=== PATIENT | female | born 1965 | race Caucasian/White ===

== ENCOUNTER → 2017-10-09 | Outpatient (CLI) | payer BC ==
[~2017-10-09] MED LIST: DCS100C PO; FERR-47 PO; FEXO1TAB42 PO; HYDR-34 PO; IBP600T1 PO
--- NOTE | 2017-10-09 10:19 | Diagnostic Imaging Report ---
INDICATION: Routine screening. COMPARISON: 01/29/2015 and 01/20/2014. TECHNIQUE: 2D and 3D bilateral screening mammography was performed with CAD. FINDINGS: Scattered fibroglandular densities are identified bilaterally. A biopsy clip in the upper-outer right breast is again noted. There is a cluster of microcalcifications in the outer right breast which appears stable. No dominant mass or malignant appearing microcalcifications are seen. The axillae are unremarkable. IMPRESSION: No mammographic features suspicious for malignancy are identified. ACR BI-RADS Category 2: Benign findings. Result letter will be mailed to the patient. Note: At least 10% of breast cancer is not imaged by mammography. Dictated by: Dictated on workstation # [id number]
== END ==
LOC: RAD 07:36
PROVIDERS: ATTEND Obstetrics & Gynecology
DX: Z12.31 Encounter for screening mammogram for malignant neoplasm of breast (principal)
CPT/HCPCS: 77067

== ENCOUNTER → 2019-01-22 | Outpatient (CLI) | payer BC ==
--- NOTE | 2019-01-24 19:16 | Diagnostic Imaging Report ---
EXAMINATION: Digital mammogram bilateral screening. INDICATION: Screening. COMPARISON: This study was compared to the prior exams of 10/09/2017, 01/29/2015, and 01/20/2014. At this time, there are no current complaints. The current study was also evaluated with a Computer Aided Detection (CAD) system. 3-D tomosynthesis was also performed and reviewed. FINDINGS: There are scattered fibroglandular densities in both breasts which could obscure a lesion. In the upper-outer aspect of the right breast at mid posterior depth, there are a few faint calcifications. These calcifications were present on the prior exam, but they do seem more conspicuous on this study. I am not convinced that they have changed, however. Even so, I would recommend that a compression/magnification view of this area be obtained in the CC and ML projections so that they can be better characterized. The overall appearance of the breasts has not changed significantly otherwise. The stereotactic clip in the upper-outer aspect of the right breast seen previously is again evident. There is no primary or secondary sign of malignancy noted. IMPRESSION: Additional mammographic views of the right breast would be recommended for further study. ACR BI-RADS Category 0: Incomplete. (Needs additional imaging evaluation). Result letter will be mailed to the patient. Note: At least 10% of breast cancer is not imaged by mammography. Dictated by: Dictated on workstation # [id number]
== END ==
LOC: RAD 15:15
PROVIDERS: ATTEND Obstetrics & Gynecology
DX: Z12.31 Encounter for screening mammogram for malignant neoplasm of breast (principal)
CPT/HCPCS: 77067

== ENCOUNTER → 2019-02-14 | Outpatient (CLI) | payer BC ==
--- NOTE | 2019-02-14 08:24 | Diagnostic Imaging Report ---
Indication: Right breast calcifications. Patient presents for additional views. Correlation is made with recent screening study from 01/22/2019 as well as prior mammograms dating back to 2013. Unilateral right 2-D and 3-D diagnostic mammography was performed including magnification CC and ML views as well as conventional 90 degree lateral view. There are some calcifications in the upper outer right breast mid depth. The majority of calcifications appear to be punctate. No soft tissue mass is seen. IMPRESSION: Microcalcifications upper outer right breast, likely benign. Even so, follow-up right mammogram in 6 months is recommended to confirm stability. Dictated by: Dictated on workstation # [id number]
== END ==
LOC: RAD 07:59
PROVIDERS: ATTEND Obstetrics & Gynecology
DX: R92.0 Mammographic microcalcification found on diagnostic imaging of breast (principal); R92.8 Other abnormal and inconclusive findings on diagnostic imaging of breast

== ENCOUNTER → 2020-09-09 | Outpatient (CLI) | payer BC ==
--- NOTE | 2020-09-09 10:32 | Diagnostic Imaging Report ---
Indication: Routine screening. Comparison is made with prior mammogram 01/22/2019 and 10/09/2017. 2-D and 3-D bilateral screening mammography was performed with CAD. Scattered fibroglandular densities are identified bilaterally. Biopsy marker clip in the outer right breast is again noted. Calcifications of the outer right breast appear to be stable. No new mass or malignant appearing microcalcifications are seen. Axillae are unremarkable. IMPRESSION: BI-RADS Category 2 No mammographic features suspicious for malignancy are identified. ACR BI-RADS Category 2: Benign findings. Result letter will be mailed to the patient. Note: At least 10% of breast cancer is not imaged by mammography. Dictated by: Dictated on workstation # [id number]
== END ==
LOC: RAD 07:45
PROVIDERS: ATTEND Obstetrics & Gynecology
DX: Z12.31 Encounter for screening mammogram for malignant neoplasm of breast (principal)
CPT/HCPCS: 77063; 77067